=== PATIENT | female | born 1945 | race Caucasian/White ===

== ENCOUNTER → 2017-03-28 | Outpatient (CLI) | payer MEDICARE, BC ==
[~2017-03-28] MED LIST: ASPI-496 PO; ATOR40TA PO; CHOL20002 PO; CYAN1TAB52 PO; METO25TA91 PO
== END | disposition home or self-care (01) ==
LOC: STAR 12:01
PROVIDERS: ATTEND Orthopaedic Surgery
DX: Z01.818 Encounter for other preprocedural examination (principal); M19.011 Primary osteoarthritis, right shoulder; R82.99 Other abnormal findings in urine
CPT/HCPCS: 81001; 87077; 87081; 87086; 87147; 87186; 93005

== ENCOUNTER 2017-04-09 07:24 | Inpatient (IN) | payer MEDICARE, BC ==
[~2017-04-09] VITALS: Ht 165.1 cm; Wt 48.7 kg
[2017-04-09] MEDS ORDERED: VANCOMYCIN PER PHARMACY MC STA (07:33)
[2017-04-09] MEDS ORDERED: LACTATED RINGERS 1,000 ML IV SCH (07:51)
[2017-04-09 07:54] VITALS: BP 100/67
[2017-04-09] MEDS ORDERED: VANCOMYCIN PMX 1GM/200ML 200 ML IV ONE (08:00)
[2017-04-09] MEDS ORDERED: ALBUTEROL SULFATE 2.5 MG/3 ML NPPB PRN (09:00)
[2017-04-09] MEDS ORDERED: FENTANYL PF 100 MCG/2ML IV PRN (09:00)
[2017-04-09] MEDS ORDERED: HYDROmorphone 1 MG/ML, 1ML IV PRN (09:00)
[2017-04-09] MEDS ORDERED: ONDANSETRON 2MG/ML, 2ML IVPush PRN (09:00)
[2017-04-09] MEDS ORDERED: OXYcodone 5 MG/5 ML ORAL.SOL UDC PO PRN (09:00)
[2017-04-09] MEDS ORDERED: hydrALAzine 20 MG/ML, 1ML IV PRN (09:00)
[2017-04-09] MEDS ORDERED: EPHEDRINE 50 MG/ML, 1ML IVPush PRN (09:00)
[2017-04-09] MEDS ORDERED: PROMETHAZINE 25 MG/ML, 1ML IV PRN (09:00)
[2017-04-09] MEDS ORDERED: ACETAMINOPHEN 325 MG TABLET PO PRN (09:00)
[2017-04-09] MEDS ORDERED: LABETALOL 5MG/ML, 20ML IV PRN (09:00)
[2017-04-09] MEDS ORDERED: METOPROLOL 1 MG/ML, 5ML IV PRN (09:00)
[2017-04-09] MEDS ORDERED: CLINDAMYCIN 150 MG/ML, 6ML ONE ×2 (09:07→10:56)
[2017-04-09] MEDS ORDERED: MIDAZOLAM 1 MG/ML, 2ML ONE (09:56)
[2017-04-09] MEDS: D5%-0.45% NACL 1,000 ML IV SCH ×2 (10:26→15:37)
[2017-04-09] MEDS ORDERED: BISACODYL 10 MG SUPP PR PRN (10:30)
[2017-04-09] MEDS ORDERED: LORazepam 2 MG/ML, 1ML IV PRN (10:30)
[2017-04-09] MEDS ORDERED: PROMETHAZINE 25 MG/ML, 1ML IM PRN (10:30)
[2017-04-09] MEDS ORDERED: ONDANSETRON 2MG/ML, 2ML IV PRN (10:30)
[2017-04-09] MEDS ORDERED: morphine SULFATE 10 MG/ML, 1ML IV PRN (10:30)
[2017-04-09] MEDS ORDERED: SENNA/DOCUSATE TABLET PO PRN (10:30)
[2017-04-09] MEDS: HYDROcodone/APAP 10/325 MG TABLET PO SCH ×4 (10:30→22:30)
[2017-04-09] MEDS ORDERED: DIPHENHYDRAMINE 25 MG CAPSULE PO PRN (10:30)
[2017-04-09] MEDS ORDERED: ONDANSETRON 2MG/ML, 2ML ONE (10:56)
[2017-04-09] MEDS ORDERED: NEOSTIGMINE 1 MG/ML, 10ML ONE (10:56)
[2017-04-09] MEDS ORDERED: GLYCOPYRROLATE 0.2MG/1ML ONE (10:56)
[2017-04-09] MEDS ORDERED: PROPOFOL 10 MG/ML, 20ML ONE (10:56)
[2017-04-09] MEDS ORDERED: ROCURONIUM 10 MG/ML ONE (10:56)
[2017-04-09] MEDS ORDERED: PROMETHAZINE 25 MG/ML, 1ML ONE (13:27)
[2017-04-09] MEDS: KETOROLAC 30 MG/1 ML IV SCH ×2 (15:35→23:34)
[2017-04-09] MEDS: CEFAZOLIN PMX 1GM/50ML 50 ML IVPB SCH ×2 (18:21→23:35)
[2017-04-09 19:06] VITALS: BP 93/56
[2017-04-09] MEDS: DOCUSATE 100 MG CAPSULE PO SCH (21:55)
[2017-04-09 23:37] VITALS: BP_SYST 90
[2017-04-10] MEDS: D5%-0.45% NACL 1,000 ML IV SCH (02:28)
[2017-04-10] MEDS: HYDROcodone/APAP 10/325 MG TABLET PO SCH ×3 (02:30→10:45)
[2017-04-10 03:48] VITALS: BP 96/60
[2017-04-10 06:38] VITALS: BP 96/59
[2017-04-10] MEDS: CEFAZOLIN PMX 1GM/50ML 50 ML IVPB SCH (08:33)
[2017-04-10] MEDS: KETOROLAC 30 MG/1 ML IV SCH (08:33)
[2017-04-10] MEDS: DOCUSATE 100 MG CAPSULE PO SCH (08:33)
== END 2017-04-10 11:35 | disposition home or self-care (01) | DRG 483 ==
LOC: ORIP 07:24 → 4NOR 14:31 → DCLOUNGE 04-10 11:14
PROVIDERS: ADMIT Orthopaedic Surgery; ATTEND Orthopaedic Surgery
PROC: 0LS30ZZ Reposition Right Upper Arm Tendon, Open Approach (ICD-10-PCS; 2017-04-09)
PROC: 0RRJ0JZ Replacement of Right Shoulder Joint with Synthetic Substitute, Open Approach (ICD-10-PCS; principal; 2017-04-09 10:00)
DX: M19.011 Primary osteoarthritis, right shoulder (principal); Z68.1 Body mass index [BMI] 19.9 or less, adult; M75.20 Bicipital tendinitis, unspecified shoulder; M75.21 Bicipital tendinitis, right shoulder; F17.210 Nicotine dependence, cigarettes, uncomplicated; Z96.641 Presence of right artificial hip joint; E78.00 Pure hypercholesterolemia, unspecified; Z95.0 Presence of cardiac pacemaker; Z79.82 Long term (current) use of aspirin; Z90.710 Acquired absence of both cervix and uterus; Z85.6 Personal history of leukemia
CPT/HCPCS: C1713; C1776; J0690; J1885; J2250; J2405; J2550; J2704; J2710; J3370; J3490; J7120

== ENCOUNTER 2018-01-20 18:46 | Emergency (ER) | payer MEDICARE, BC ==
[~2018-01-20] VITALS: Ht 165.1 cm; Wt 47.8 kg
[2018-01-20 19:38] LABS: MEAN CORPUSCULAR HEMOGLOBIN 29.3 pg (27.0-34.8); MEAN CORPUSCULAR HGB CONC 32.4 g/dL (32.4-35.8); MEAN CORPUSCULAR VOLUME 90.4 fL (80-100); MEAN PLATELET VOLUME 6.3 fL (7.4-10.4); PLATELET COUNT 329 x10^3/uL (130-400); RED BLOOD COUNT 4.55 x10^6/uL (3.82-5.3); RED CELL DISTRIBUTION WIDTH 20.7 % (9.6-15.2)
[2018-01-20 19:48] LABS: ALBUMIN 4.1 g/dL (3.4-5.0); ANION GAP 6 mmol/L (5-15); CHLORIDE 106 mmol/L (98-107); CREATININE 0.96 mg/dL (0.55-1.02)
[2018-01-20 19:51] LABS: TROPONIN I < 0.015 ng/mL (0.000-0.045)
[2018-01-20 19:59] LABS: BASOPHILS # (AUTO) 0.04 x10^3/uL (0-0.1); BASOPHILS % (AUTO) 0 % (0-1); EOSINOPHILS # (AUTO) 0.18 x10^3/uL (0-0.4); EOSINOPHILS % (AUTO) 2 % (1-7); LYMPHOCYTES # (AUTO) 6.99 x10^3/uL (1-3.4); LYMPHOCYTES % (AUTO) 67 % (22-44); MONOCYTES # (AUTO) 0.48 x10^3/uL (0.2-0.8); MONOCYTES % (AUTO) 5 % (2-9); NEUTROPHILS % (AUTO) 26 % (42-75)
[2018-01-20 20:03] LABS: MD MORPH REVIEW ONLY
[2018-01-20 20:07] LABS: ECHINOCYTES 1+
[2018-01-20 20:08] LABS: OVALOCYTES 1+
[2018-01-20 20:10] LABS: ACANTHOCYTES 1+; BITE CELLS 1+
[2018-01-20 20:11] LABS: SCHISTOCYTES 1+
[2018-01-20 20:12] LABS: <PLATELET ESTIMATE> DECREASED
[2018-01-20 20:13] LABS: <PLT MORPHOLOGY> NORMAL PLT MORPH
[2018-01-20 20:49] LABS: MICROSCOPIC NOT IND
[2018-01-20 20:54] LABS: CULTURE INDICATED? NO
[2018-01-20 22:22] VITALS: BP 110/68
== END 2018-01-20 22:24 | disposition home or self-care (01) ==
LOC: ED 22:05
DX: R06.02 Shortness of breath (principal); R07.89 Other chest pain; R53.1 Weakness; R00.0 Tachycardia, unspecified; J44.9 Chronic obstructive pulmonary disease, unspecified; C91.10 Chronic lymphocytic leukemia of B-cell type not having achieved remission; I71.4 Abdominal aortic aneurysm, without rupture; Z95.0 Presence of cardiac pacemaker
CPT/HCPCS: 36415; 71045; 80048; 81003; 82040; 84484; 85025; 93005; 99285